=== PATIENT | female | born 1975 | race Caucasian/White ===

== ENCOUNTER 2024-05-23 15:52 | Inpatient (IN) | payer BC ==
[~2024-05-23] VITALS: Ht 165.1 cm; Wt 68.0 kg
[2024-05-23 16:03] VITALS: BP_SYST 133; PULSE 91; RESP 18; TEMP 98.9; O2SAT 97
[2024-05-23 16:37] LABS: BASOPHILS % (AUTO) 0.4 % (0.0-2.0); EOSINOPHILS # (AUTO) 0.2 K/uL (0.0-0.4); EOSINOPHILS % (AUTO) 1.4 % (0.0-4.0); HEMATOCRIT 44.1 % (36-48); HEMOGLOBIN 14.9 g/dL (12.0-16.0); LYMPHOCYTES # (AUTO) 1.3 K/uL (1.0-5.5); MEAN CORPUSCULAR HEMOGLOBIN 28 pg (27-31); MEAN CORPUSCULAR HGB CONC 34 % (32-36); MEAN CORPUSCULAR VOLUME 83 fL (79.0-98.0); MONOCYTES # (AUTO) 0.6 K/uL (0.0-1.0); MONOCYTES % (AUTO) 5.2 % (1.7-9.3); NEUTROPHILS # (AUTO) 10.1 K/uL (1.8-7.7); PLATELET COUNT (AUTO) 332 K/uL (130-430); RED CELL DISTRIBUTION WIDTH 14.8 % (9.0-15.0); WHITE BLOOD COUNT (AUTO) 12.3 K/uL (4.8-10.8)
[2024-05-23] MEDS: NACL 0.9% 1,000 ML IV ONE ×2 (16:46→18:37)
[2024-05-23] MEDS: KETOROLAC TROMETHAMINE 30 MG VIAL IVP ONE (16:54)
[2024-05-23] MEDS: PANTOPRAZOLE SODIUM 40 MG/VIAL (PROTONIX) IVP ONE (16:55)
[2024-05-23] MEDS: ONDANSETRON HCL 4 MG/2 ML VIAL IVP ONE ×2 (16:55→18:46)
[2024-05-23 17:01] LABS: ALBUMIN 3.6 g/dL (3.4-4.8); BILIRUBIN,DIRECT 0.7 mg/dL (0.0-0.3); CALCIUM 8.9 mg/dL (8.4-11.0); CREATININE 0.62 mg/dL (0.55-1.30); POTASSIUM 4.1 mmol/L (3.5-5.1); TOTAL BILIRUBIN 1.4 mg/dL (0.0-1.0); TOTAL PROTEIN, SERUM 7.7 g/dL (6.4-8.3)
[2024-05-23 18:14] LABS: BILIRUBIN,URINE NEGATIVE (NEGATIVE); BLOOD, URINE NEGATIVE (NEGATIVE); COLOR,URINE YELLOW (YELLOW); GLUCOSE,URINE NEGATIVE (NEGATIVE); KETONES,URINE NEGATIVE (NEGATIVE); LEUKOCYTE ESTERASE ,URINE TRACE (NEGATIVE); NITRITE, URINE NEGATIVE (NEGATIVE); PROTEIN URINE NEGATIVE (NEGATIVE); UROBILINOGEN,URINE 0.2 (0.2-1.0)
[2024-05-23] MEDS ORDERED: ACETAMINOPHEN 325 MG TABLET PO PRN (18:30)
[2024-05-23] MEDS ORDERED: MORPHINE 2 MG/ML INJ. SYRINGE IVP PRN (18:30)
[2024-05-23] MEDS ORDERED: ONDANSETRON HCL 4 MG/2 ML VIAL IVP PRN (18:30)
[2024-05-23 18:33] LABS: CLARITY/URINE SLIGHTLY HAZY (CLEAR)
[2024-05-23] MEDS: MORPHINE 4 MG INJ. 4 MG/ML VIAL IVP ONE (18:45)
[2024-05-23 19:28] LABS: BACTERIA,URINE MANY /HPF (None Seen); MUCUS,URINE None Seen /LPF (None Seen); RBC,URINE NONE SEEN /HPF (0-3); YEAST,URINE Moderate /HPF (None Seen)
[2024-05-23 21:27] VITALS: BP_SYST 142; PULSE 59; RESP 18; TEMP 97.3; O2SAT 100
[2024-05-23] MEDS ORDERED: LORazepam 1 MG TABLET PO PRN (21:45)
[2024-05-23] MEDS ORDERED: ZOLPIDEM TARTRATE 5 MG TABLET PO PRN (21:45)
[2024-05-23] MEDS: LR 1,000 ML IV SCH (22:13)
[2024-05-23] MEDS ORDERED: cefTRIAXone 1 GM VIAL ONE ×2 (22:20)
[2024-05-23] MEDS: cefTRIAXone 1 GM in D5W 50 ML IV SCH (22:27)
[2024-05-23] MEDS: MORPHINE 4 MG INJ. 4 MG/ML VIAL IVP PRN (22:27)
[2024-05-24] VITALS: BP_SYST 131; PULSE 61; RESP 16; TEMP 97.8; O2SAT 100
[2024-05-24 07:30] LABS: BASOPHILS % (AUTO) 0.2 % (0.0-2.0); EOSINOPHILS # (AUTO) 0.3 K/uL (0.0-0.4); HEMATOCRIT 37.1 % (36-48); HEMOGLOBIN 12.3 g/dL (12.0-16.0); LYMPHOCYTES # (AUTO) 1.6 K/uL (1.0-5.5); LYMPHOCYTES % (AUTO) 18.9 % (20.5-51.5); MEAN CORPUSCULAR HEMOGLOBIN 28 pg (27-31); MEAN CORPUSCULAR HGB CONC 33 % (32-36); MEAN CORPUSCULAR VOLUME 85 fL (79.0-98.0); MONOCYTES # (AUTO) 0.5 K/uL (0.0-1.0); MONOCYTES % (AUTO) 5.4 % (1.7-9.3); NEUTROPHILS # (AUTO) 6.1 K/uL (1.8-7.7); NEUTROPHILS % (AUTO) 72.5 % (40.0-70.0); PLATELET COUNT (AUTO) 269 K/uL (130-430); RED BLOOD CELL COUNT(AUTO) 4.36 MIL/uL (4.2-6.2); RED CELL DISTRIBUTION WIDTH 15.1 % (9.0-15.0); WHITE BLOOD COUNT (AUTO) 8.4 K/uL (4.8-10.8)
[2024-05-24 07:41] LABS: HEMOGLOBIN A1C 5.8 % (<5.7)
[2024-05-24 08:00] VITALS: BP_SYST 107; PULSE 58; RESP 16; TEMP 96.5; O2SAT 98
[2024-05-24 08:04] LABS: ALBUMIN 2.7 g/dL (3.4-4.8); CALCIUM 7.6 mg/dL (8.4-11.0); CREATININE 0.56 mg/dL (0.55-1.30); POTASSIUM 3.8 mmol/L (3.5-5.1); TOTAL BILIRUBIN 0.7 mg/dL (0.0-1.0); TOTAL PROTEIN, SERUM 6.1 g/dL (6.4-8.3)
[2024-05-24] MEDS: PANTOPRAZOLE SODIUM 40 MG/VIAL (PROTONIX) IVP SCH (09:09)
[2024-05-24 11:16] VITALS: BP_SYST 102; PULSE 54; RESP 16; TEMP 98.2
[2024-05-24 15:38] VITALS: BP_SYST 135; PULSE 64; RESP 18; TEMP 97.5; O2SAT 99
[2024-05-24 20:00] VITALS: BP_SYST 144; PULSE 71; RESP 18; TEMP 98.2; O2SAT 100
[2024-05-24] MEDS: HEPARIN SODIUM,PORCINE 5,000 UNITS/ML VIAL SUBCUT SCH (20:30)
[2024-05-25] VITALS: BP_SYST 121; PULSE 67; RESP 16; TEMP 97.8; O2SAT 100
[2024-05-25 05:52] LABS: BASOPHILS % (AUTO) 0.2 % (0.0-2.0); EOSINOPHILS # (AUTO) 0.1 K/uL (0.0-0.4); EOSINOPHILS % (AUTO) 2.1 % (0.0-4.0); HEMATOCRIT 37.3 % (36-48); HEMOGLOBIN 12.4 g/dL (12.0-16.0); LYMPHOCYTES % (AUTO) 28.5 % (20.5-51.5); MEAN CORPUSCULAR HEMOGLOBIN 28 pg (27-31); MEAN CORPUSCULAR HGB CONC 33 % (32-36); MEAN CORPUSCULAR VOLUME 84 fL (79.0-98.0); MONOCYTES # (AUTO) 0.4 K/uL (0.0-1.0); MONOCYTES % (AUTO) 5.2 % (1.7-9.3); NEUTROPHILS # (AUTO) 4.4 K/uL (1.8-7.7); PLATELET COUNT (AUTO) 281 K/uL (130-430); RED BLOOD CELL COUNT(AUTO) 4.45 MIL/uL (4.2-6.2); RED CELL DISTRIBUTION WIDTH 14.9 % (9.0-15.0); WHITE BLOOD COUNT (AUTO) 6.9 K/uL (4.8-10.8)
[2024-05-25 06:11] LABS: CALCIUM 8.3 mg/dL (8.4-11.0); POTASSIUM 3.4 mmol/L (3.5-5.1)
[2024-05-25 06:12] LABS: ALBUMIN 2.8 g/dL (3.4-4.8); CREATININE 0.5 mg/dL (0.55-1.30); TOTAL BILIRUBIN 0.6 mg/dL (0.0-1.0); TOTAL PROTEIN, SERUM 6.2 g/dL (6.4-8.3)
[2024-05-25 08:00] VITALS: BP_SYST 158; PULSE 76; RESP 16; TEMP 98.6; O2SAT 99
[2024-05-25] MEDS: POTASSIUM CHLORIDE 20 MEQ TABLET.ER PO ONE (10:05)
[2024-05-25] MEDS ORDERED: CEPH250C PO (10:58)
[2024-05-25 11:05] VITALS: BP_SYST 158; PULSE 85; RESP 18; TEMP 98; O2SAT 99
== END 2024-05-25 11:25 | disposition home or self-care (01) | DRG 439 ==
LOC: SED 15:52 → SMU 18:30
PROVIDERS: ADMIT Internal Medicine; ATTEND Internal Medicine
DX: K85.90 Acute pancreatitis without necrosis or infection, unspecified (principal); N39.0 Urinary tract infection, site not specified; N20.0 Calculus of kidney; Z90.710 Acquired absence of both cervix and uterus; Z79.899 Other long term (current) drug therapy
CPT/HCPCS: 36415; 74181; 76705; 80048; 80053; 80061; 80076; 81000; 81001; 81015; 83037; 83690; 85025; 85610; 85730; 87086; 87186; J0696; J1644; J1885; J2270; J2405; J7060

== ENCOUNTER 2024-06-23 12:01 | Inpatient (IN) | payer BC ==
[~2024-06-23] VITALS: Ht 165.1 cm; Wt 63.5 kg
[~2024-06-23 12:01] MED LIST: CEPH250C PO
[2024-06-23 12:05] VITALS: BP_SYST 131; PULSE 84; RESP 18; TEMP 98.6; O2SAT 99
[2024-06-23 12:39] LABS: BASOPHILS % (AUTO) 0.3 % (0.0-2.0); EOSINOPHILS # (AUTO) 0.1 K/uL (0.0-0.4); EOSINOPHILS % (AUTO) 1.3 % (0.0-4.0); HEMATOCRIT 40.4 % (36-48); HEMOGLOBIN 13.4 g/dL (12.0-16.0); LYMPHOCYTES # (AUTO) 1.5 K/uL (1.0-5.5); LYMPHOCYTES % (AUTO) 20.1 % (20.5-51.5); MEAN CORPUSCULAR HEMOGLOBIN 28 pg (27-31); MEAN CORPUSCULAR HGB CONC 33 % (32-36); MEAN CORPUSCULAR VOLUME 85 fL (79.0-98.0); MONOCYTES # (AUTO) 0.4 K/uL (0.0-1.0); MONOCYTES % (AUTO) 5.3 % (1.7-9.3); NEUTROPHILS # (AUTO) 5.5 K/uL (1.8-7.7); PLATELET COUNT (AUTO) 283 K/uL (130-430); RED BLOOD CELL COUNT(AUTO) 4.77 MIL/uL (4.2-6.2); RED CELL DISTRIBUTION WIDTH 14.9 % (9.0-15.0); WHITE BLOOD COUNT (AUTO) 7.5 K/uL (4.8-10.8)
[2024-06-23 12:58] LABS: ALBUMIN 3.4 g/dL (3.4-4.8); BILIRUBIN,DIRECT 0.1 mg/dL (0.0-0.3); CALCIUM 8.6 mg/dL (8.4-11.0); CREATININE 0.57 mg/dL (0.55-1.30); POTASSIUM 3.6 mmol/L (3.5-5.1); TOTAL BILIRUBIN 0.6 mg/dL (0.0-1.0); TOTAL PROTEIN, SERUM 6.7 g/dL (6.4-8.3)
[2024-06-23] MEDS: NACL 0.9% 1,000 ML IV ONE (13:09)
[2024-06-23] MEDS: MORPHINE 4 MG INJ. 4 MG/ML VIAL IVP ONE (13:10)
[2024-06-23] MEDS: ONDANSETRON HCL 4 MG/2 ML VIAL IVP ONE (13:11)
[2024-06-23] MEDS ORDERED: FOLIC ACID 1 MG, THIAMINE HCL 100 MG, MAGNESIUM SULFATE 1 GM, MVI 10 ML in NACL 0.9% 1,... IV ONE (14:15)
[2024-06-23] MEDS ORDERED: ONDANSETRON HCL 4 MG/2 ML VIAL IVP PRN (15:15)
[2024-06-23] MEDS ORDERED: MORPHINE 2 MG/ML INJ. SYRINGE IVP PRN (15:15)
[2024-06-23] MEDS ORDERED: LORazepam 2 MG/ML VIAL IVP PRN (15:15)
[2024-06-23] MEDS ORDERED: MORPHINE 4 MG INJ. 4 MG/ML VIAL IVP PRN (15:15)
[2024-06-23] MEDS ORDERED: NALOXONE HCL 0.4 MG/ML AMP (NARCAN) IVP PRN (15:15)
[2024-06-23 16:17] VITALS: BP_SYST 132; PULSE 65; RESP 18; O2SAT 99
[2024-06-23 16:37] VITALS: O2SAT 99
[2024-06-23 17:08] VITALS: BP_SYST 132; PULSE 65; RESP 18; TEMP 97.4
[2024-06-23] MEDS: FOLIC ACID 1 MG, MVI 10 ML in NACL 0.9% 1,000 ML IV ONE (18:22)
[2024-06-23] MEDS: THIAMINE HCL 100 MG, MAGNESIUM SULFATE 1 GM in NS 100 ML IV ONE (18:23)
[2024-06-23 20:00] VITALS: BP_SYST 133; PULSE 63; RESP 18; TEMP 97.6; O2SAT 95
[2024-06-24 00:08] VITALS: BP_SYST 128; PULSE 61; RESP 18; TEMP 97.6; O2SAT 96
[2024-06-24 05:33] LABS: BASOPHILS % (AUTO) 0.2 % (0.0-2.0); EOSINOPHILS # (AUTO) 0.2 K/uL (0.0-0.4); HEMATOCRIT 37.1 % (36-48); HEMOGLOBIN 12.3 g/dL (12.0-16.0); LYMPHOCYTES # (AUTO) 1.8 K/uL (1.0-5.5); LYMPHOCYTES % (AUTO) 26.5 % (20.5-51.5); MEAN CORPUSCULAR HEMOGLOBIN 28 pg (27-31); MEAN CORPUSCULAR HGB CONC 33 % (32-36); MEAN CORPUSCULAR VOLUME 85 fL (79.0-98.0); MONOCYTES # (AUTO) 0.3 K/uL (0.0-1.0); MONOCYTES % (AUTO) 5.2 % (1.7-9.3); NEUTROPHILS # (AUTO) 4.3 K/uL (1.8-7.7); NEUTROPHILS % (AUTO) 65.1 % (40.0-70.0); PLATELET COUNT (AUTO) 255 K/uL (130-430); RED BLOOD CELL COUNT(AUTO) 4.36 MIL/uL (4.2-6.2); RED CELL DISTRIBUTION WIDTH 15.1 % (9.0-15.0); WHITE BLOOD COUNT (AUTO) 6.6 K/uL (4.8-10.8)
[2024-06-24 05:54] LABS: CALCIUM 7.8 mg/dL (8.4-11.0); CREATININE 0.57 mg/dL (0.55-1.30); POTASSIUM 3.7 mmol/L (3.5-5.1); TOTAL BILIRUBIN 0.7 mg/dL (0.0-1.0); TOTAL PROTEIN, SERUM 5.7 g/dL (6.4-8.3)
[2024-06-24 08:00] VITALS: O2SAT 98
[2024-06-24] MEDS: KETOROLAC TROMETHAMINE 30 MG VIAL IVP PRN (10:05)
[2024-06-24] MEDS ORDERED: LORazepam 2 MG/ML VIAL IVP PRN (10:45)
[2024-06-24 11:07] VITALS: BP_SYST 137; PULSE 80; RESP 16; TEMP 97.5; O2SAT 100
[2024-06-24 15:13] VITALS: BP_SYST 126; PULSE 65; RESP 16; TEMP 98.5; O2SAT 98
[2024-06-24 16:12] VITALS: BP_SYST 122; PULSE 61; RESP 17; TEMP 97.9; O2SAT 98
== END 2024-06-24 16:45 | disposition home or self-care (01) | DRG 440 ==
LOC: SED 12:01 → SMU 14:04
PROVIDERS: ADMIT Preventive Medicine Preventive Medicine/Occupational Environmental Medicine; ATTEND Preventive Medicine Preventive Medicine/Occupational Environmental Medicine
DX: K85.90 Acute pancreatitis without necrosis or infection, unspecified (principal); K21.9 Gastro-esophageal reflux disease without esophagitis; Z90.710 Acquired absence of both cervix and uterus; Z79.899 Other long term (current) drug therapy
CPT/HCPCS: 36415; 80048; 80053; 80076; 82150; 83690; 85025; 96365; 99285; J1885; J2270; J2405; J3411; J3475; J3490; J7030